=== PATIENT | male | born 1970 | race Caucasian/White ===

== ENCOUNTER → 2018-10-08 14:11 | Outpatient (CLI) | payer OTHER, SELFPAY ==
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
== END ==
PROVIDERS: PCP Internal Medicine; Visit Provider Internal Medicine
DX: R07.81 Pleurodynia (principal)
CPT/HCPCS: 71046; 71100

== ENCOUNTER → 2018-10-13 14:05 | Outpatient (CLI) | payer OTHER, SELFPAY ==
--- NOTE | 2018-10-13 14:19 | CT_ITS ---
CT chest w con HISTORY: Left-sided chest pain, left pulmonary nodule ITS.REASON: LUNG NODULE ORDERING PHYSICIAN: Miles Bower PATIENT AGE: 48 years COMPARISON: None TECHNIQUE: Axial images obtained following the administration of 75 mL of Isovue 370 . Sagittal, and coronal reformatted images are also generated and reviewed. All CT scans at the facility use one or more dose reduction, viz: automated exposure control, ma/kV adjustment per patient size (including targeted exams where dose is matched to indication, i.e. head), or iterative reconstruction technique. FINDINGS: Scattered small nodes are present in the mediastinum and qian. No mediastinal or hilar mass or adenopathy. Normal heart size. No evidence of pericardial effusion. Small nodes are present in the axilla as well. No evidence of aortic aneurysm or dissection and no evidence of central pulmonary embolus. There is a 3 mm noncalcified nodule in the right apex. No effusions or infiltrates. There is some minimal nodularity within the lingula corresponding to the radiographic. This is consistent with an area of scarring along with partial volume averaging from a left pericardial fat pad. No suspicious nodule is evident. No effusions or infiltrates. No acute bony anomalies. Upper abdominal images are unremarkable. IMPRESSION: 1. No acute finding. No suspicious pulmonary nodule evident. 2. There is minimal nodularity in the lingula consistent with fibrotic change/scarring corresponding to the radiographic abnormality.
== END ==
PROVIDERS: PCP Internal Medicine; Visit Provider Internal Medicine
DX: R91.1 Solitary pulmonary nodule (principal)
CPT/HCPCS: 71260; Q9967

== ENCOUNTER → 2019-04-25 09:33 | Outpatient (CLI) | payer OTHER, SELFPAY ==
[2019-04-25 13:02] LABS: Alanine Aminotransferase 38 U/L (12-78); Albumin Level 3.7 gm/dL (3.4-5.0); Albumin/Globulin Ratio 1.1 (1.1-1.8); Alkaline Phosphatase 78 U/L (46-116); Anion Gap 15.6 mEq/L (5-15); Aspartate Amino Transferase 27 U/L (15-37); Bilirubin,Total 0.4 mg/dL (0.2-1.0); Blood Urea Nitrogen 11 mg/dL (7-18); Carbon Dioxide 24 mmol/L (21.0-32.0); Chloride 104 mmol/L (98-107); Chol/HDL Ratio 5.2 (1-3.5); Cholesterol 186 mg/dL (140-200); Creatinine,Serum 0.94 mg/dL (0.70-1.30); Estimated Glomerular Filt Rate 85 ml/min (>60); GFR (African American) 103 ML/MIN (>60); Globulin 3.3 gm/dl (1.3-3.2); Glucose 105 mg/dL (74-106); HDL Cholesterol 36 mg/dL (27-67); LDL Cholesterol 104 mg/dL (0-130); Potassium 3.6 mmoL/L (3.5-5.1); Prostate Specific Ag, Diagnost 0.43 ng/mL (0.0-4.0); Sodium 140 mmol/L (136-145); Triglycerides 230 mg/dL (30-200); VLDL Cholesterol 46 mg/dL (0-40)
== END ==
PROVIDERS: PCP Internal Medicine; Visit Provider Internal Medicine
DX: R07.9 Chest pain, unspecified (principal); I10 Essential (primary) hypertension
CPT/HCPCS: 80053; 80061; 84153; 93005

== ENCOUNTER → 2019-04-28 11:09 | Outpatient (CLI) | payer OTHER, SELFPAY ==
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
== END ==
PROVIDERS: PCP Internal Medicine; Visit Provider Internal Medicine
DX: M25.572 Pain in left ankle and joints of left foot (principal); M25.571 Pain in right ankle and joints of right foot
CPT/HCPCS: 73610

== ENCOUNTER 2021-06-14 14:35 | Emergency (ER) | payer OTHER, SELFPAY ==
[2021-06-14 14:36] VITALS: BP 139/81; PULSE 96; RESP 16; TEMP 36.8; O2SAT 96; BMI 30.4
--- NOTE | 2021-06-14 14:46 | CT_ITS ---
PROCEDURE: CT ABDOMEN PELVIS W CON CLINICAL INDICATION: abdominal pain COMPARISON: CT ABDPELW/O CT ABD PELVIS W/O CONTRAST from 12/06/2013 TECHNIQUE: IV Contrast: 75ML Isovue 370 Oral Contrast None Axial images obtained with sagittal and coronal reformats. All CT scans at the facility use one or more dose reduction, viz: automated exposure control, ma/kV adjustment per patient size (including targeted exams where dose is matched to indication, i.e. head), or iterative reconstruction technique. FINDINGS: LOWER THORAX: No acute finding ABDOMEN & PELVIS: The liver, spleen, adrenal glands, and pancreas has an unremarkable appearance. No radiopaque gallstones. No renal or ureteral calculi. No hydronephrosis. No intestinal obstruction or free air. There are few air-fluid levels within the large bowel. A 12 mm hyperdensity is present in the cecum and may be due to ingested contents. The appendix is slightly prominent measuring 7 mm in diameter. There is however no stranding of the periappendiceal fat There is a heterogeneous masslike lesion in the left paracentral aspect of the pelvis which is directly contiguous with the lateral aspect of the sigmoid colon measuring 6.2 x 6.5 by 4.3 cm. There is stranding of the fat around this region. There is some irregularity of the lateral wall the sigmoid colon at this area. There is colonic diverticulosis. The inferior aspect of this lesion is abuts the superior aspect of the urinary bladder. Urinary bladder is collapsed with thickening of the wall. No free pelvic fluid is evident. No acute bony findings. IMPRESSION: 1. 6.5 x 6.2 by 4.3 cm heterogeneous density in the pelvic region slightly toward the left which abuts the sigmoid colon along its lateral aspect and the superior aspect of the urinary bladder on the left. This may represent phlegmonous changes from diverticulitis. Developing abscess is considered. Neoplasm of the sigmoid colon is also consideration. If the patient has signs and symptoms of diverticulitis then would recommend treatment and follow-up exam in 2 weeks to see if this area resolves or if an abscess a ventrally forms. No free air is evident. 2. Slightly prominent appendix. No definite evidence however of appendicitis. Dictated by: Nash Darby MD 06/14/2021 15:59 Nash Darby MD in [place] 06/14/2021 15:59
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
[2021-06-14 15:58] LABS: Basophils # 0.1 K/mm3 (0-0.2); Basophils % 0.3 % (0.1-2.0); Eosinophils # 0.2 K/mm3 (0.0-0.4); Eosinophils % 1.3 % (0.1-12.0); Hematocrit 35.8 % (42.0-52.0); Hemoglobin 12.1 g/dL (14.1-18.0); Lymphocytes # 1.2 K/mm3 (0.7-4.5); Lymphocytes % 6.4 % (10-50); Mean Corpuscular HGB Conc 33.7 g/dL (31.8-35.4); Mean Corpuscular Hemoglobin 32.5 pg (27.0-31.2); Mean Corpuscular Volume 96.5 fl (80-94); Mean Platelet Volume 7.2 fl (7.4-10.4); Monocytes # 0.7 K/mm3 (0.1-1.0); Monocytes % 3.8 % (1.7-9.3); Platelet Count 615 K/mm3 (142-424); Red Blood Count 3.71 M/mm3 (4.60-6.20); Red Cell Distribution Width 13.1 % (11.5-17.5); White Blood Count 18.1 K/mm3 (4.8-10.8)
[2021-06-14 15:59] LABS: MANUAL DIFFERENTIAL MANUAL DIFFERENTIAL (MANUAL DIFF)
[2021-06-14 16:01] LABS: Chloride 99 mmol/L (98-107); Potassium 3.7 mmoL/L (3.5-5.1); Sodium 135 mmol/L (136-145)
[2021-06-14 16:03] LABS: Alanine Aminotransferase 22 U/L (12-78); Alkaline Phosphatase 98 U/L (38-126); Aspartate Amino Transferase 30 U/L (17-59); Bilirubin,Total 0.4 mg/dl (0.2-1.3); Blood Urea Nitrogen 7 mg/dl (9-20); Creatinine Clearance Estimated 131 mL/min (50-200); Estimated Glomerular Filt Rate 102 ml/min (>60); GFR (African American) 123 ML/MIN (>60)
[2021-06-14 16:04] LABS: Albumin Level 3.7 g/dl (3.5-5.0); Albumin/Globulin Ratio 0.9 (1.1-1.8); Anion Gap 14.7 mEq/L (5-15); Calcium 9.1 mg/dl (8.4-10.2); Carbon Dioxide 25 mmol/L (22.0-30.0); Glucose 120 mg/dl (74-100); Lactic Acid 0.9 mmol/L (0.7-2.1); Lipase 22 U/L (23-300); Total Protein,Serum 7.7 g/dl (6.3-8.2)
[2021-06-14 16:11] LABS: Lymphocytes % 5 % (10-50); Monocytes % 3 % (2-9); Neutrophils % 92 % (42-76); Platelet Estimate Slight Increase; RBC Morphology Normal; Total Cells Counted 100
[2021-06-14 16:13] VITALS: BP 121/76; PULSE 81; RESP 20; O2SAT 96
[2021-06-14 16:46] LABS: Microscopic, Urine URINE MICROSCOPIC (MICROSCOPIC)
[2021-06-14 16:48] LABS: Appearance,Urine SL CLOUDY (Clear); Bilirubin,Urine Negative (Negative); Blood, Urine Negative (Negative); Color,Urine DK YELLOW (Yellow); Glucose,Urine (UA) Negative (Negative); Ketones,Urine Negative (Negative); Leukocyte Esterase,Urine Negative (Negative); Nitrate,Urine Negative (Negative); PH,Urine 5.5 (5.0-8.5); Protein,Urine TRACE (Negative); Specific Gravity, Urine <= 1.005 (1.005-1.030); Urobilinogen,Urine 0.2 EU/dl (0.2)
[2021-06-14 17:16] LABS: Bacteria,Urine Trace /lpf
[2021-06-14 17:42] VITALS: BP 144/83; PULSE 72; RESP 16; TEMP 36.8; O2SAT 96
== END 2021-06-14 17:51 | disposition home or self-care (01) ==
PROVIDERS: Emergency Provider Emergency Medicine; PCP Internal Medicine
DX: R10.9 Unspecified abdominal pain (principal); W19.XXXA Unspecified fall, initial encounter
CPT/HCPCS: 74177; 80053; 81001; 83605; 83690; 85007; 85025; 99283; Q9967

== ENCOUNTER → 2021-06-28 14:32 | Outpatient (CLI) | payer OTHER, SELFPAY ==
[2021-06-28 15:39] LABS: Chloride 104 mmol/L (98-107); Potassium 3.7 mmoL/L (3.5-5.1); Sodium 138 mmol/L (136-145)
[2021-06-28 15:42] LABS: Anion Gap 10.7 mEq/L (5-15); Basophils # 0.1 K/mm3 (0-0.2); Basophils % 1.1 % (0.1-2.0); Blood Urea Nitrogen 8 mg/dl (9-20); Calcium 9.1 mg/dl (8.4-10.2); Carbon Dioxide 27 mmol/L (22.0-30.0); Eosinophils # 0.2 K/mm3 (0.0-0.4); Eosinophils % 1.7 % (0.1-12.0); Estimated Glomerular Filt Rate 141 ml/min (>60); GFR (African American) 171 ML/MIN (>60); Glucose 101 mg/dl (74-100); Hematocrit 37.6 % (42.0-52.0); Hemoglobin 12.7 g/dL (14.1-18.0); Lymphocytes # 1.5 K/mm3 (0.7-4.5); Lymphocytes % 17.9 % (10-50); Mean Corpuscular HGB Conc 33.8 g/dL (31.8-35.4); Mean Corpuscular Hemoglobin 32.3 pg (27.0-31.2); Mean Corpuscular Volume 95.6 fl (80-94); Mean Platelet Volume 7.9 fl (7.4-10.4); Monocytes # 0.6 K/mm3 (0.1-1.0); Monocytes % 6.5 % (1.7-9.3); Neutrophils # 6.3 K/mm3 (1.8-7.8); Neutrophils % 72.9 % (37.0-80.0); Platelet Count 501 K/mm3 (142-424); Red Blood Count 3.93 M/mm3 (4.60-6.20); Red Cell Distribution Width 14.9 % (11.5-17.5); White Blood Count 8.7 K/mm3 (4.8-10.8)
== END ==
PROVIDERS: Visit Provider Internal Medicine
DX: K57.92 Diverticulitis of intestine, part unspecified, without perforation or abscess without bleeding (principal); I10 Essential (primary) hypertension
CPT/HCPCS: 36415; 80048; 85025

== ENCOUNTER → 2021-07-11 09:52 | Outpatient (CLI) | payer OTHER, SELFPAY ==
--- NOTE | 2021-07-11 09:57 | CT_ITS ---
PROCEDURE: CT ABDOMEN PELVIS WO/W CON CLINICAL INDICATION: INTRA ABD AND PELVIC SWELLING, MASS, LUMP COMPARISON: CT CT ABDOMEN PELVIS W CON from 06/14/2021 TECHNIQUE: IV Contrast: 75ML Isovue 370 Oral Contrast 450ml Redicat rectal contrast was also administered. Axial images obtained with sagittal and coronal reformats. All CT scans at the facility use one or more dose reduction, viz: automated exposure control, ma/kV adjustment per patient size (including targeted exams where dose is matched to indication, i.e. head), or iterative reconstruction technique. FINDINGS: LOWER THORAX: Unremarkable ABDOMEN & PELVIS: There is a tiny punctate hepatic cyst gallbladder unremarkable. Pancreas unremarkable. Splenule. Spleen unremarkable. Adrenal glands unremarkable. Kidneys unremarkable. Tiny punctate renal calculus in left collecting system. Ureters unremarkable. Persistent bladder wall thickening, though improved since prior study there is no gas in the bladder to suggest colovesicular fistula despite the direct abutment of the region of sigmoid diverticulitis on the dome of the bladder. Prostate punctate calcification. Rectum unremarkable. There is persistent sigmoid wall thickening and diverticulitis with contained perforation which directly abuts the dome of the bladder and is adjacent to the left ureter there is no free intraperitoneal air the prior abscess has now resolved. Descending colon, transverse colon, and ascending colon appear unremarkable. Appendix appears unremarkable. Terminal ileum appears unremarkable. GE junction appears unremarkable. Stomach appears unremarkable. Proximal jejunum exhibits mild wall thickening. Mild thoracic spondylosis and mild lumbar spondylosis, with left L5 spondylolysis. IMPRESSION: 1. Improving sigmoid diverticulitis with small residual contained perforation and interval resolution of abscess. After diverticulitis resolves, colonoscopy is recommended to exclude underlying neoplasm. 2. Improving bladder wall inflammation secondary to abutment of adjacent sigmoid diverticulitis. 3. Mild wall thickening of proximal jejunum without surrounding inflammatory change which can be seen in peristalsis, or infectious or inflammatory enteritis. 4. Mild lumbar spondylosis with left L5 spondylolysis. Dictated by: Karolina Jim MD 07/11/2021 11:40 Karolina Jim MD in [place] 07/11/2021 11:40
== END ==
PROVIDERS: PCP Internal Medicine; Visit Provider Internal Medicine
DX: R22.2 Localized swelling, mass and lump, trunk (principal)
CPT/HCPCS: 74178; Q9967

== ENCOUNTER → 2021-08-28 16:11 | Outpatient (CLI) | payer OTHER, SELFPAY ==
[2021-08-28 18:30] LABS: Blood Urea Nitrogen 13 mg/dl (9-20); Estimated Glomerular Filt Rate 64 ml/min (>60); GFR (African American) 77 ML/MIN (>60)
== END ==
PROVIDERS: Visit Provider Internal Medicine
DX: K57.92 Diverticulitis of intestine, part unspecified, without perforation or abscess without bleeding (principal)
CPT/HCPCS: 36415; 82565; 84520

== ENCOUNTER → 2021-08-31 08:05 | Outpatient (CLI) | payer OTHER, SELFPAY ==
--- NOTE | 2021-08-31 08:09 | CT_ITS ---
PROCEDURE: CT ABDOMEN PELVIS W CON CLINICAL INDICATION: DIVERTICULITIS COMPARISON: CT ABDPELW/O CT ABD PELVIS W/O CONTRAST from 12/06/[address] ABDOMEN PELVIS W CON from 06/14/[address] ABDOMEN PELVIS WO/W CON from 07/11/2021 TECHNIQUE: IV Contrast: 75ML Isovue 370 Oral Contrast 450ml Redicat Axial images obtained with sagittal and coronal reformats. All CT scans at the facility use one or more dose reduction, viz: automated exposure control, ma/kV adjustment per patient size (including targeted exams where dose is matched to indication, i.e. head), or iterative reconstruction technique. FINDINGS: LOWER THORAX: No acute finding ABDOMEN & PELVIS: Are 2 small hypodensities of the left hepatic lobe superiorly measuring 3 and 4 mm nonspecific suggesting small cysts not significantly changed. The gallbladder, spleen, adrenal glands, pancreas, and kidneys have an unremarkable appearance. No intestinal obstruction or free air. Unremarkable appendix. Colonic diverticulosis. There is thickening of the mid aspect of the sigmoid colon with mild stranding of the pericolic fat. This has shown improvement compared to the previous study. Small area increased soft tissue density is present in the left pericolic region of the sigmoid colon.. This could be related to a prominent diverticulum. This is contiguous with the superior left aspect of the urinary bladder. There is mild bladder wall thickening nonspecific. This could also be due to postinflammatory scarring. The no obvious abscess or extra colic gas.There is some minimal stranding of the fat in this region suggesting some minimal residual inflammatory changes. No acute bony findings. IMPRESSION: 1. Continued improvement in the diverticulitis of the sigmoid colon. A residual left pericolic soft tissue density is noted and may be related to prominent diverticulum versus postinflammatory scarring. This also is contiguous with the superior aspect of the urinary bladder. No gas is evident in the urinary bladder. No obvious abscess or pericolic gas. Continued follow-up suggested to confirm resolution or stability of the pericolic findings on the left and the colonic wall thickening. 2. Other nonacute findings as described above. Dictated by: Nash Darby MD 09/01/2021 08:56 Nash Darby MD in [place] 09/01/2021 08:56
== END ==
PROVIDERS: PCP Internal Medicine; Visit Provider Internal Medicine
DX: K57.92 Diverticulitis of intestine, part unspecified, without perforation or abscess without bleeding (principal)
CPT/HCPCS: 74177; Q9967

== ENCOUNTER → 2021-09-27 16:39 | Outpatient (CLI) | payer OTHER, SELFPAY | PROVIDERS: PCP Internal Medicine; Visit Provider Surgery | DX: U07.1 COVID-19 (principal) | CPT/HCPCS: C9803; U0003; U0005 ==

== ENCOUNTER → 2021-10-04 16:35 | Outpatient (CLI) | payer OTHER, SELFPAY | PROVIDERS: Visit Provider Surgery | DX: Z01.818 Encounter for other preprocedural examination (principal); Z11.52 Encounter for screening for COVID-19; Z12.11 Encounter for screening for malignant neoplasm of colon | CPT/HCPCS: C9803; U0003; U0005 ==

== ENCOUNTER 2021-10-06 08:21 | Day surgery (SDC) | payer OTHER, SELFPAY ==
[2021-09-27 11:37] VITALS: BMI 29.0
--- NOTE | 2021-10-06 08:37 | P.PN_ITS ---
[facility] Anesthesia Checklist - Patient Identification Patient Identification: Arm Band - Structural Data Admitted From: Home Planned Operative Procedure/s: Colonoscopy Consent for Planned Operative Procedure(s) Verified: Yes - NPO Status Verified Time NPO: 00:00 - Airway Assessment C-Spine Mobility Assessed: Yes TMJ Mobility Assessed: Yes Dentition: Good Dentition - Neurological Assessment Level of Consciousness: Awake Hx Seizures: No Numbness or tingling in extremities: No - Anesthesia Plan Anesthesia Risk discussed: Yes Anesthesia Plan: Verified ASA Class: II Anesthesia Type: MAC [facility] History I have reviewed the patient's past medical history: Yes Medical History: Reports:: Gastroesophageal Reflux Disease(GERD), Hypertension Denies:: Cancer, Diabetes Mellitus Type 1, Diabetes Mellitus Type 2, Internal Pacemaker, MRSA *Have you ever received a pneumonia vaccine?: No *Have you received a flu vaccine this season?: No Anesthesia experience/problems:: None Other Surgeries: No: Pacemaker Amputation: No Fractures: No - *Social History Last grade of school completed: High school graduate Smoking Status: Current every day smoker Tobacco Type: cigarettes # Packs/Day (cigarettes): 1 Alcohol Intake: current Alcohol Intake Frequency:: a few times a month Substance Use Type: denies use *Occupational Status:: employed Housing: house Household Members: none *Travel in the last 8 weeks: None Family Hx:: No significant family history
[2021-10-06 08:40] VITALS: BP 126/81; PULSE 71; RESP 18; TEMP 36.1; O2SAT 97
[2021-10-06 08:57] VITALS: O2SAT 97
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
[2021-10-06 09:23] VITALS: BP 80/51; PULSE 78; RESP 18; TEMP 36.4; O2SAT 94
[2021-10-06 09:33] VITALS: BP 82/61; PULSE 75; RESP 18; O2SAT 95
[2021-10-06 09:43] VITALS: BP 126/86; PULSE 73; RESP 18; O2SAT 99
[2021-10-06 09:57] VITALS: BP 127/64; PULSE 68; RESP 18; O2SAT 99
== END 2021-10-06 10:00 | disposition home or self-care (01) ==
LOC: OUTP 08:22
PROVIDERS: PCP Internal Medicine; Visit Provider Surgery
PROC: 0DJD8ZZ Inspection of Lower Intestinal Tract, Via Natural or Artificial Opening Endoscopic (ICD-10-PCS; CPT 45385; principal; 2021-10-06 09:30)
DX: Z12.11 Encounter for screening for malignant neoplasm of colon (principal); K63.5 Polyp of colon; K57.32 Diverticulitis of large intestine without perforation or abscess without bleeding; K64.0 First degree hemorrhoids; K21.9 Gastro-esophageal reflux disease without esophagitis; I10 Essential (primary) hypertension; Z72.0 Tobacco use; Z79.899 Other long term (current) drug therapy
CPT/HCPCS: 45385; J2704

== ENCOUNTER → 2021-11-28 08:30 | Outpatient (CLI) | payer OTHER, SELFPAY ==
--- NOTE | 2021-11-28 08:45 | CT_ITS ---
FINAL REPORT CLINICAL HISTORY: diverticulitis injury several months ago. f/u from previous ct COMPARISON: August 31, 2021 and July 11, 2021 FINDINGS: Technique: The patient was injected with intravenous contrast. Oral contrast was administered. Axial images through the abdomen and pelvis were performed. This study was performed with techniques to keep radiation doses as low as reasonably achievable (ALARA). Individualized dose reduction techniques using automated exposure control or adjustment of mA and/or kV according to the patient's size were employed. Abdomen: The lung bases are clear. There are 2 less than 1 cm low-attenuation foci in the left hepatic lobe which are not as well visualized but stable. No new hepatic abnormality is identified. The gallbladder is present. The spleen is unremarkable. The adrenals are normal. The pancreas is unremarkable. The kidneys enhance appropriately. The aorta is normal in caliber. There is no free fluid or adenopathy. Pelvis: The appendix is normal. The urinary bladder is unremarkable. There is sigmoid diverticulosis. There has been further interval improvement in the soft tissue lateral to the distal sigmoid colon which is consistent with improved inflammation. There is no new abnormality. There is persistent wall thickening of the sigmoid colon, favor muscular hypertrophy. There is no free fluid or adenopathy. There is left L5 pars defect. IMPRESSION: Further interval improvement in soft tissue lateral to the distal sigmoid colon consistent with improved inflammation. Persistent wall thickening of the sigmoid colon, favor muscular hypertrophy. Stable low attenuation foci in the left hepatic lobe. Reviewed, Interpreted and Dictated by Giovanny Vu III, MD Transcribed by Ranjana Contreras Authenticated by Giovanny Vu III, MD on 11/28/2021 10:45:03 AM [facility]
== END ==
LOC: RAD 08:31
PROVIDERS: PCP Internal Medicine; Visit Provider Surgery
DX: K57.92 Diverticulitis of intestine, part unspecified, without perforation or abscess without bleeding (principal)
CPT/HCPCS: 74177; Q9967

== ENCOUNTER → 2022-06-13 14:55 | Outpatient (CLI) | payer OTHER, SELFPAY | PROVIDERS: PCP Internal Medicine; Visit Provider Internal Medicine | DX: Z20.822 Contact with and (suspected) exposure to COVID-19 (principal) | CPT/HCPCS: C9803; U0003; U0005 ==

== ENCOUNTER → 2022-12-14 17:25 | Outpatient (CLI) | payer OTHER, SELFPAY ==
[2022-12-14 18:23] LABS: Alanine Aminotransferase 60 U/L (12-78); Albumin Level 4.2 g/dl (3.5-5.0); Albumin/Globulin Ratio 1.6 (1.1-1.8); Alkaline Phosphatase 104 U/L (38-126); Anion Gap 11.4 mEq/L (5-15); Aspartate Amino Transferase 56 U/L (17-59); Bilirubin,Total 0.6 mg/dl (0.2-1.3); Blood Urea Nitrogen 11 mg/dl (9-20); Carbon Dioxide 23 mmol/L (22.0-30.0); Chloride 105 mmol/L (98-107); Chol/HDL Ratio 6.7 (1-3.5); Cholesterol 262 mg/dl (140-200); Estimated Glomerular Filt Rate 118 ml/min (>60); GFR (African American) 143 ML/MIN (>60); Globulin 2.6 g/dL (1.3-3.2); Glucose 80 mg/dl (74-100); HDL Cholesterol 39 mg/dl (40-60); Potassium 3.4 mmoL/L (3.5-5.1); Sodium 136 mmol/L (136-145); Total Protein,Serum 6.8 g/dl (6.3-8.2)
[2022-12-14 18:34] LABS: Direct LDL Cholesterol 59.12 mg/dL (100-129)
[2022-12-14 18:35] LABS: Triglycerides 824 mg/dl (30-150)
[2022-12-14 18:49] LABS: Basophils # 0.1 K/mm3 (0-0.2); Basophils % 0.7 % (0.1-2.0); Eosinophils # 0.1 K/mm3 (0.0-0.4); Hematocrit 39.9 % (42.0-52.0); Hemoglobin 13.1 g/dL (14.1-18.0); Lymphocytes # 1.8 K/mm3 (0.7-4.5); Lymphocytes % 26.5 % (10-50); Mean Corpuscular Hemoglobin 31.4 pg (27.0-31.2); Mean Corpuscular Volume 95.3 fl (80-94); Mean Platelet Volume 8.6 fl (7.4-10.4); Monocytes # 0.5 K/mm3 (0.1-1.0); Monocytes % 7.2 % (1.7-9.3); Neutrophils # 4.4 K/mm3 (1.8-7.8); Neutrophils % 63.6 % (37.0-80.0); Platelet Count 326 K/mm3 (142-424); Red Blood Count 4.18 M/mm3 (4.60-6.20); Red Cell Distribution Width 13.7 % (11.5-17.5); White Blood Count 6.9 K/mm3 (4.8-10.8)
[2022-12-14 18:54] LABS: Prostate Specific Ag Screen 0.5 ng/ml (0.0-4.0)
== END ==
LOC: LAB.DROPOF 17:27
PROVIDERS: PCP Internal Medicine; Visit Provider Internal Medicine
DX: I10 Essential (primary) hypertension (principal); E78.5 Hyperlipidemia, unspecified; Z12.5 Encounter for screening for malignant neoplasm of prostate
CPT/HCPCS: 80053; 80061; 85025; G0103

== ENCOUNTER 2023-01-01 19:00 | Emergency (ER) | payer OTHER, SELFPAY ==
[2023-01-01 19:19] VITALS: BP 188/99; PULSE 78; RESP 16; TEMP 36.7; O2SAT 100; BMI 31.4
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
[2023-01-01 20:14] LABS: Basophils # 0.1 K/mm3 (0-0.2); Basophils % 0.8 % (0.1-2.0); Eosinophils # 0.1 K/mm3 (0.0-0.4); Eosinophils % 1.6 % (0.1-12.0); Hematocrit 39.3 % (42.0-52.0); Lymphocytes # 1.7 K/mm3 (0.7-4.5); Lymphocytes % 26.2 % (10-50); Mean Corpuscular HGB Conc 33.1 g/dL (31.8-35.4); Mean Corpuscular Hemoglobin 31.5 pg (27.0-31.2); Mean Corpuscular Volume 95.2 fl (80-94); Mean Platelet Volume 7.5 fl (7.4-10.4); Monocytes # 0.5 K/mm3 (0.1-1.0); Monocytes % 7.3 % (1.7-9.3); Neutrophils # 4.1 K/mm3 (1.8-7.8); Neutrophils % 64.2 % (37.0-80.0); Platelet Count 281 K/mm3 (142-424); Red Blood Count 4.13 M/mm3 (4.60-6.20); White Blood Count 6.4 K/mm3 (4.8-10.8)
[2023-01-01 20:24] LABS: Alanine Aminotransferase 34 U/L (12-78); Albumin Level 4.4 g/dl (3.5-5.0); Albumin/Globulin Ratio 1.6 (1.1-1.8); Alkaline Phosphatase 81 U/L (38-126); Aspartate Amino Transferase 47 U/L (17-59); Bilirubin,Total 0.5 mg/dl (0.2-1.3); Blood Urea Nitrogen 11 mg/dl (9-20); Calcium 8.8 mg/dl (8.4-10.2); Carbon Dioxide 24 mmol/L (22.0-30.0); Chloride 101 mmol/L (98-107); Creatinine Clearance Estimated 153 mL/min (50-200); Estimated Glomerular Filt Rate 118 ml/min (>60); GFR (African American) 143 ML/MIN (>60); Globulin 2.7 g/dL (1.3-3.2); Glucose 134 mg/dl (74-100); Sodium 134 mmol/L (136-145); Total Protein,Serum 7.1 g/dl (6.3-8.2)
--- NOTE | 2023-01-01 20:26 | PC.NURSE ---
potassium 3.0
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
--- NOTE | 2023-01-01 21:24 | PC.NURSE ---
Dr. Vela paged for Dr. Wilson
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
--- NOTE | 2023-01-01 21:32 | PC.NURSE ---
PC to transfer center trauma team, awaiting return call
[2023-01-01 21:39] VITALS: BP 78/58; PULSE 60; O2SAT 98
[2023-01-01 22:19] VITALS: BP 136/93; PULSE 77; RESP 15; TEMP 36.4; O2SAT 98
== END 2023-01-01 22:22 | disposition short-term general hospital (02) ==
PROVIDERS: Emergency Provider Emergency Medicine; PCP Internal Medicine
DX: S42.022A Displaced fracture of shaft of left clavicle, initial encounter for closed fracture (principal); V29.39XA Other motorcycle (driver) (passenger) injured in unspecified nontraffic accident, initial encounter; F17.210 Nicotine dependence, cigarettes, uncomplicated
CPT/HCPCS: 70450; 71046; 71275; 72125; 72170; 73030; 73080; 73562; 74177; 80053; 85025; 96374; 96375; 99285; J2405; Q9967

== ENCOUNTER → 2023-01-16 14:32 | Outpatient (CLI) | payer OTHER, SELFPAY ==
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
== END ==
PROVIDERS: PCP Internal Medicine; Visit Provider Internal Medicine
DX: M79.604 Pain in right leg (principal); M79.605 Pain in left leg; R60.0 Localized edema
CPT/HCPCS: 93970

== ENCOUNTER → 2023-06-14 17:10 | Outpatient (CLI) | payer OTHER, SELFPAY ==
[2023-06-14 17:40] LABS: Basophils % 0.5 % (0.1-2.0); Eosinophils # 0.1 K/mm3 (0.0-0.4); Eosinophils % 1.6 % (0.1-12.0); Hematocrit 39.3 % (42.0-52.0); Lymphocytes # 1.8 K/mm3 (0.7-4.5); Lymphocytes % 25.5 % (10-50); Mean Corpuscular Hemoglobin 30.8 pg (27.0-31.2); Mean Corpuscular Volume 93.2 fl (80-94); Mean Platelet Volume 8.2 fl (7.4-10.4); Monocytes # 0.5 K/mm3 (0.1-1.0); Monocytes % 6.9 % (1.7-9.3); Neutrophils # 4.6 K/mm3 (1.8-7.8); Neutrophils % 65.4 % (37.0-80.0); Platelet Count 333 K/mm3 (142-424); Red Blood Count 4.22 M/mm3 (4.60-6.20); Red Cell Distribution Width 13.9 % (11.5-17.5); White Blood Count 7.1 K/mm3 (4.8-10.8)
[2023-06-14 17:43] LABS: Chloride 109 mmol/L (98-107); Potassium 3.5 mmoL/L (3.5-5.1); Sodium 141 mmol/L (136-145)
[2023-06-14 17:45] LABS: Blood Urea Nitrogen 12 mg/dl (9-20); Estimated Glomerular Filt Rate 101 ml/min (>60); GFR (African American) 122 ML/MIN (>60)
[2023-06-14 17:46] LABS: Alanine Aminotransferase 38 U/L (12-78); Albumin Level 4.2 g/dl (3.5-5.0); Albumin/Globulin Ratio 1.5 (1.1-1.8); Alkaline Phosphatase 101 U/L (38-126); Anion Gap 11.5 mEq/L (5-15); Aspartate Amino Transferase 41 U/L (17-59); Bilirubin,Total 0.6 mg/dl (0.2-1.3); Carbon Dioxide 24 mmol/L (22.0-30.0); Cholesterol 182 mg/dl (140-200); Globulin 2.8 g/dL (1.3-3.2); Triglycerides 246 mg/dl (30-150); VLDL Cholesterol 49 mg/dL (0-40)
[2023-06-14 17:47] LABS: Calcium 9.4 mg/dl (8.4-10.2); Glucose 92 mg/dl (74-100); HDL Cholesterol 45 mg/dl (40-60)
[2023-06-14 17:57] LABS: Direct LDL Cholesterol 87.95 mg/dL (100-129)
== END ==
PROVIDERS: PCP Internal Medicine; Visit Provider Internal Medicine
DX: I10 Essential (primary) hypertension (principal); E78.5 Hyperlipidemia, unspecified; N40.1 Benign prostatic hyperplasia with lower urinary tract symptoms; K57.30 Diverticulosis of large intestine without perforation or abscess without bleeding; Z72.0 Tobacco use
CPT/HCPCS: 80053; 80061; 85025

== ENCOUNTER → 2023-06-21 17:45 | Outpatient (CLI) | payer OTHER, SELFPAY ==
[2023-06-21 19:06] LABS: Reticulocyte % (Auto) 1.9 % (0.9-3.2)
[2023-06-21 22:26] LABS: Iron 191 ug/dL (49-181)
[2023-06-21 23:00] LABS: Total Iron Binding Capacity 510 ug/dL (261-462)
== END ==
PROVIDERS: PCP Internal Medicine; Visit Provider Internal Medicine
DX: D64.9 Anemia, unspecified (principal)
CPT/HCPCS: 83540; 83550; 85044

== ENCOUNTER 2024-09-28 14:10 | Outpatient (CLI) | payer BC, SELFPAY ==
[2024-09-28 17:10] LABS: Basophils # 0.1 K/mm3 (0-0.2); Basophils % 0.6 % (0.1-2.0); Eosinophils # 0.2 K/mm3 (0.0-0.4); Eosinophils % 2.3 % (0.1-12.0); Hematocrit 36.7 % (42.0-52.0); Hemoglobin 13.4 g/dL (14.1-18.0); Lymphocytes # 1.3 K/mm3 (0.7-4.5); Lymphocytes % 16.9 % (10-50); Mean Corpuscular HGB Conc 36.5 g/dL (31.8-35.4); Mean Corpuscular Hemoglobin 32.7 pg (27.0-31.2); Mean Corpuscular Volume 89.5 fl (80-94); Mean Platelet Volume 10.2 fl (7.4-10.4); Monocytes # 0.6 K/mm3 (0.1-1.0); Monocytes % 7.2 % (1.7-9.3); Neutrophils # 5.6 K/mm3 (1.8-7.8); Neutrophils % 72.5 % (37.0-80.0); Platelet Count 280 K/mm3 (142-424); Red Cell Distribution Width 12.5 % (11.5-17.5); White Blood Count 7.8 K/mm3 (4.8-10.8)
[2024-09-28 17:45] LABS: Estimated Glomerular Filt Rate 100 ml/min (>60); GFR (African American) 121 ML/MIN (>60)
[2024-09-28 18:05] LABS: Alanine Aminotransferase 31 U/L (12-78); Albumin Level 4.5 g/dl (3.5-5.0); Albumin/Globulin Ratio 1.8 (1.1-1.8); Alkaline Phosphatase 92 U/L (38-126); Anion Gap 13.2 mEq/L (5-15); Aspartate Amino Transferase 40 U/L (17-59); Bilirubin,Total 0.8 mg/dl (0.2-1.3); Blood Urea Nitrogen 11 mg/dl (9-20); Calcium 9.3 mg/dl (8.4-10.2); Carbon Dioxide 23 mmol/L (22.0-30.0); Chloride 104 mmol/L (98-107); Chol/HDL Ratio 4.2 (1-3.5); Cholesterol 200 mg/dl (140-200); Globulin 2.5 g/dL (1.3-3.2); Glucose 83 mg/dl (74-100); HDL Cholesterol 48 mg/dl (40-60); Potassium 4.2 mmoL/L (3.5-5.1); Sodium 136 mmol/L (136-145); Triglycerides 254 mg/dl (30-150); VLDL Cholesterol 51 mg/dL (0-40)
[2024-09-28 18:36] LABS: Prostate Specific Ag Screen 0.7 ng/ml (0.0-4.0)
[2024-09-29 14:40] LABS: Iron 268 ug/dL (49-181)
[2024-09-29 14:57] LABS: Total Iron Binding Capacity 505 ug/dL (261-462)
== END 2024-09-28 23:59 | disposition home or self-care (01) ==
LOC: LAB.DROPOF 09-29 13:31
PROVIDERS: PCP Internal Medicine; Visit Provider Internal Medicine
DX: E78.5 Hyperlipidemia, unspecified (principal); I10 Essential (primary) hypertension; F17.200 Nicotine dependence, unspecified, uncomplicated; Z12.5 Encounter for screening for malignant neoplasm of prostate; D64.9 Anemia, unspecified
CPT/HCPCS: 80053; 80061; 83540; 83550; 85025; G0103

== ENCOUNTER 2024-10-05 15:00 | Outpatient (CLI) | payer BC, SELFPAY ==
[2024-10-05 19:27] LABS: Vitamin B12 324 pg/mL (239-931)
[2024-10-05 20:43] LABS: HIV Combo NEGATIVE (Negative)
[2024-10-06 15:59] LABS: RPR W/RFX Titers Nonreactive (Nonreactive)
[2024-10-10 09:16] LABS: Mycoplasma genitalium, NAA Negative (Negative); Neisseria gonorrhoeae, NAA Negative (Negative); Trich vag by NAA Negative (Negative)
== END 2024-10-05 23:59 | disposition home or self-care (01) ==
LOC: LAB.DROPOF 10-06 08:02
PROVIDERS: PCP Internal Medicine; Visit Provider Internal Medicine
DX: D64.9 Anemia, unspecified (principal); Z11.3 Encounter for screening for infections with a predominantly sexual mode of transmission
CPT/HCPCS: 82607; 86592; 87389; 87491; 87563; 87591; 87661